=== PATIENT | female | born 1985 | race American Indian/Alaskan Native ===

== ENCOUNTER 2017-02-15 20:38 | Emergency (ER) | payer SELFPAY ==
--- NOTE | 2017-02-16 02:39 | Emergency Department Report ---
HPI - General Chief Complaint: Fever Time Seen by Provider: 02/16/17 02:06 - HPI HPI: Patient is a 31-year-old female presents to ED complaining of fever, body aches , cough 1 day. Patient states symptoms began at 9 AM yesterday. Patient states she dry nonproductive cough. Patient states she sees generalized body aches Along with a fever. Patient states she has not taken medication. Patient denies nausea/vomiting/chest pain/shortness of breath abdominal pain/ vaginal discharge. ED Past Medical Hx - Past Medical History Previous Medical History?: No - Surgical History Past Surgical History?: No - Social History Smoking Status: Never Smoker Substance Use Type: None - Medications Home Medications: Home Medications Medication Instructions Recorded Confirmed Last Taken Type Penicillin Vk [Veetids TAB] 500 mg PO QID #28 tablet 09/29/15 Unknown Rx Acetaminophen/Codeine 1 tab PO Q6H PRN #15 tab 08/10/16 Unknown Rx [Acetaminophen-Codeine #3 TAB] Penicillin Vk [Veetids TAB] 250 mg PO QID #28 tablet 08/10/16 Unknown Rx Ibuprofen [Motrin] 800 mg PO Q8HR PRN #30 tablet 02/16/17 Unknown Rx Sulfamethoxazole/Trimethoprim 1 each PO BID #14 tablet 02/16/17 Unknown Rx [Bactrim DS TAB] ED Review of Systems ROS: Stated complaint: HAMILTON/DIZZINESS Other details as noted in HPI Comment: All other systems reviewed and negative Constitutional: chills, fever, malaise Respiratory: cough Gastrointestinal: denies: nausea, vomiting Genitourinary: denies: urgency, dysuria, discharge Skin: denies: rash, lesions Physical Exam - Physical Exam Vital Signs: Vital Signs 02/15/17 21:30 Temperature 99 F Pulse Rate 104 H Respiratory 18 Rate Blood Pressure 117/80 O2 Sat by Pulse 99 Oximetry Physical Exam: GENERAL: Alert and oriented x3, no apparent distress, Normal Gait, atraumatic. HEAD: Head is normocephalic and a-traumatic. EYES: Extra ocular muscles are intact. Pupils are equal, round, and reactive to light and accommodation. EARS: symetrical, atraumatic, non tender, ear canal clear and moderate cerumen, tympanic membrance non inflamed. gross auditory nml bilaterally. NOSE: Nose symetrical, Nontender,Nares appeared normal. MOUTH:Mouth is well hydrated and without lesions. Tonsils nonerythematous or swollen, Uvula midline, Tongue not elevated. Mucous membranes are moist. Posterior pharynx clear, no exudate or lesions. Patent airways. NECK: Supple. Non edematous, No carotid bruits. No lymphadenopathy or thyromegaly. LUNGS: Symetrical with respiration, No wheezing, no rales or crackles, CTAB. HEART: S1, S2 present, regular rate and rhythm without murmur, no rubs, no gallops. ABDOMEN: No organomegaly was noted,Positive bowel sounds, soft, and non- distended. . Nontender to palpation on all Quadrants, NO CVA tenderness.. EXTREMITIES/MUSCULOSKELETAL: No cyanosis, clubbing, rash, lesions or edema. Full ROM bilaterally. UE/LE Pulses 2+ bilaterally. LE and UE 5+ strength bilaterally NEUROLOGIC: No focal Deficit, Cranial nerves II through XII are grossly intact. No loss of sensation, . PSYCHIATRIC: Mood is congruent with affect, denies suicidal or homicidal ideations. SKIN: Warm and dry, No lesions, No ulceration or induration present. ED Course Vital Signs 02/15/17 21:30 Temperature 99 F Pulse Rate 104 H Respiratory 18 Rate Blood Pressure 117/80 O2 Sat by Pulse 99 Oximetry ED Medical Decision Making - Medical Decision Making 31-year-old female presents with urinary tract infection ED course: Patient received Robitussin, 800 mg of Motrin. Urinalysis and UPT ordered. Urine test negative. Urinalysis suggests UTI Discussed the patient flulike symptoms. Discussed findings with patient. Discussed [id number] symptomatic relief. This caused increase hydration and vitamin C daily intake. Skull some medication of antibiotic. Discussed to take antibiotic as prescribed. Discussed Motrin as needed for pain. Critical care attestation.: If time is entered above; I have spent that time in minutes in the direct care of this critically ill patient, excluding procedure time. ED Disposition Clinical Impression: Flu-like symptoms UTI (urinary tract infection) Qualifiers: Urinary tract infection type: acute cystitis Hematuria presence: with hematuria Qualified Code(s): N30.01 - Acute cystitis with hematuria Disposition: DISCHARGED TO HOME OR SELFCARE Is pt being admited?: No Does the pt Need Aspirin: No Condition: Stable Instructions: Urinary Tract Infection in Women (ED) Prescriptions: Ibuprofen [Motrin] 800 mg PO Q8HR PRN #30 tablet PRN Reason: Pain Sulfamethoxazole/Trimethoprim [Bactrim DS TAB] 1 each PO BID #14 tablet Referrals: GORDON MAYS MD [Staff Physician] - 3-5 Days ROSETTA CANO MD [Referring] - 3-5 Days YASIR MOREIRA MD [Referring] - 3-5 Days Forms: Work/School Release Form(ED) Time of Disposition: 03:33
[2017-02-16 02:49] LABS: Bacteria,Urine 1+ /HPF (Negative); Bilirubin,Urine NEG (Negative); Blood,Urine NEG (Negative); Ketones,Urine NEG (Negative); Leukocyte Esterase,Urine NEG (Negative); Mucus,Urine 2+ /HPF; Nitrite,Urine NEG (Negative); Protein,Urine <15 mg/dL mg/dL (Negative)
[2017-02-16] MEDS ORDERED: ROBITUSSIN PO ONE (03:36)
[2017-02-16] MEDS ORDERED: MOTRIN PO ONE (03:36)
[2017-02-16 04:09] VITALS: BP 121/78
== END 2017-02-16 04:08 | disposition home or self-care (01) ==
LOC: ED 20:38
DX: N30.01 Acute cystitis with hematuria (principal)
CPT/HCPCS: 81001; 81025; 99283

== ENCOUNTER 2019-12-11 14:29 | Emergency (ER) | payer MEDICAID ==
[2019-12-11] MEDS ORDERED: ACETAMINOPHEN 325 MG TAB PO ONE (17:48)
--- NOTE | 2019-12-11 17:49 | Emergency Department Report ---
Blank Doc - Documentation Documentation: 34-year-old female that presents with URI and fever. Patient if 5 weeks pregn ant. This initial assessment/diagnostic orders/clinical plan/treatment(s) is/are subject to change based on patient's health status, clinical progression and re- assessment by fellow clinical providers in the ED. Further treatment and workup at subsequent clinical providers discretion. Patient/guardians urged not to elope from the ED as their condition may be serious if not clinically assessed a nd managed. Initial orders include: 1- Patient sent to [facility] for further evaluation and treatment 2- Tylenol-RN to repeat vitals
--- NOTE | 2019-12-11 21:42 | Emergency Department Report ---
Minor Respiratory - HPI Chief Complaint: Upper Respiratory Infection Stated Complaint: FLU SYM Time Seen by Provider: 12/11/19 17:47 Duration: 2 Days Minor Respiratory: Yes Able to Tolerate Fluids, Yes Cough, Yes Fever, No Rhinorrhea, No Sore Throat, No Ear Pain, No Sick Contacts, No Hemoptysis, No Chest Pain, No Shortness of Breath Other History: 34-year-old -British female presents to the emergency room for flulike symptoms. Patient presents a cough bodyaches and headache 2 days. Patient reports she is 5 weeks and 4 days 6 para 5. Patient reports she is in care's. Patient's taken nothing for symptoms Tylenol was given in triage. Patient states has chest pains or cough. ED Review of Systems ROS: Stated complaint: FLU SYM Other details as noted in HPI ED Past Medical Hx - Past Medical History Previous Medical History?: Yes Additional medical history: anemia - Surgical History Past Surgical History?: No - Social History Smoking Status: Never Smoker Substance Use Type: None - Medications Home Medications: Home Medications Medication Instructions Recorded Confirmed Last Taken Type Penicillin Vk [Veetids TAB] 500 mg PO QID #28 tablet 09/29/15 Unknown Rx Acetaminophen/Codeine [Tylenol 1 tab PO Q6H PRN #15 tab 08/10/16 Unknown Rx /Codeine # 3 tab] Penicillin Vk [Veetids TAB] 250 mg PO QID #28 tablet 08/10/16 Unknown Rx Ibuprofen [Motrin] 800 mg PO Q8HR PRN #30 tablet 02/16/17 Unknown Rx Sulfamethoxazole/Trimethoprim 1 each PO BID #14 tablet 02/16/17 Unknown Rx [Bactrim DS TAB] Oseltamivir [Tamiflu] 75 mg PO BID #10 cap 12/11/19 Unknown Rx Minor Respiratory Exam - Exam General: Vital signs noted. No distress. Alert and acting appropriately. Neurologic: Alert and oriented, no deficits. Musculoskeletal: Unremarkable. ED Course Vital Signs 12/11/19 12/11/19 16:54 17:50 Temperature 99.7 F H Pulse Rate 108 H Respiratory 20 18 Rate Blood Pressure 119/73 O2 Sat by Pulse 99 Oximetry Critical care attestation.: If time is entered above; I have spent that time in minutes in the direct care of this critically ill patient, excluding procedure time. ED Disposition Clinical Impression: Influenza A Disposition: DC-01 TO HOME OR SELFCARE Is pt being admited?: No Does the pt Need Aspirin: No Condition: Stable Instructions: Influenza (ED) Additional Instructions: You tested positive for influenza A. Increase her fluid intake of age for diet as tolerated complete antiviral medication. Take acetaminophen/Tylenol every 4- 6 hours as needed for fever and body aches. Follow-up which OB doctor Prescriptions: Oseltamivir [Tamiflu] 75 mg PO BID #10 cap Referrals: PRIMARY CARE, [Primary Care Provider] - 3-5 Days Forms: Work/School Release Form(ED), Accompanied Note
[2019-12-11 21:47] VITALS: BP 106/68
== END 2019-12-11 23:00 | disposition home or self-care (01) ==
LOC: ED 14:29
DX: J10.1 Influenza due to other identified influenza virus with other respiratory manifestations (principal); D64.9 Anemia, unspecified; Z88.5 Allergy status to narcotic agent; Z79.899 Other long term (current) drug therapy
CPT/HCPCS: 87400

== ENCOUNTER 2020-04-05 10:18 | Emergency (ER) | payer MEDICAID ==
[2020-04-05 10:30] VITALS: BP 108/61
--- NOTE | 2020-04-05 12:20 | Emergency Department Report ---
ED General Adult HPI - General Chief complaint: Dizziness Stated complaint: DIZZY/PAIN Time Seen by Provider: 04/05/20 11:47 Source: patient Mode of arrival: Ambulatory Limitations: No Limitations - History of Present Illness Initial comments: Patient is a 34-year-old female who presents emergency room with complaints of one episode of bright red blood per rectum that occurred yesterday. She states that she sat down on the toilet to have a bowel movement and noticed bright red blood present around the toilet. She states that she has experiencing some rectal pain. Patient states that she is on the end of her menstrual cycle. She states that she also had nausea and 2 episodes of vomiting. She has abdominal cramping. She denies any diarrhea, fever, urinary symptoms, melena, hematemesis. Patient states that she has had a history of hemorrhoids in the past. She also has a history of anemia but is not on any medications. She denies any allergies to medications. - Related Data Previous Rx's Medication Instructions Recorded Last Taken Type Penicillin Vk [Veetids TAB] 500 mg PO QID #28 tablet 09/29/15 Unknown Rx Acetaminophen/Codeine [Tylenol 1 tab PO Q6H PRN #15 tab 08/10/16 Unknown Rx /Codeine # 3 tab] Penicillin Vk [Veetids TAB] 250 mg PO QID #28 tablet 08/10/16 Unknown Rx Ibuprofen [Motrin] 800 mg PO Q8HR PRN #30 tablet 02/16/17 Unknown Rx Sulfamethoxazole/Trimethoprim 1 each PO BID #14 tablet 02/16/17 Unknown Rx [Bactrim DS TAB] Oseltamivir [Tamiflu] 75 mg PO BID #10 cap 12/11/19 Unknown Rx Docusate Sodium [Colace] 100 mg PO BID PRN #20 capsule 04/05/20 Unknown Rx Hydrocortisone [Anusol-Hc 2.5% TOP 1 applicatio RC BID #1 cream..g. 04/05/20 Unknown Rx CREAM] Ondansetron [Zofran Odt] 4 mg PO Q8HR PRN #12 tab.rapdis 04/05/20 Unknown Rx Pramoxine HCl [Proctofoam] 1 applic TP BID #1 foam 04/05/20 Unknown Rx Allergies Allergy/AdvReac Type Severity Reaction Status Date / Time oxycodone HCl [From Percocet] Allergy Itching Verified 04/05/20 10:28 ED Review of Systems ROS: Stated complaint: DIZZY/PAIN Other details as noted in HPI Comment: All other systems reviewed and negative ED Past Medical Hx - Past Medical History Previous Medical History?: Yes Additional medical history: anemia, hemorrhoid - Surgical History Past Surgical History?: No - Social History Smoking Status: Never Smoker Substance Use Type: None - Medications Home Medications: Home Medications Medication Instructions Recorded Confirmed Last Taken Type Penicillin Vk [Veetids TAB] 500 mg PO QID #28 tablet 09/29/15 Unknown Rx Acetaminophen/Codeine [Tylenol 1 tab PO Q6H PRN #15 tab 08/10/16 Unknown Rx /Codeine # 3 tab] Penicillin Vk [Veetids TAB] 250 mg PO QID #28 tablet 08/10/16 Unknown Rx Ibuprofen [Motrin] 800 mg PO Q8HR PRN #30 tablet 02/16/17 Unknown Rx Sulfamethoxazole/Trimethoprim 1 each PO BID #14 tablet 02/16/17 Unknown Rx [Bactrim DS TAB] Oseltamivir [Tamiflu] 75 mg PO BID #10 cap 12/11/19 Unknown Rx Docusate Sodium [Colace] 100 mg PO BID PRN #20 capsule 04/05/20 Unknown Rx Hydrocortisone [Anusol-Hc 2.5% TOP 1 applicatio RC BID #1 cream..g. 04/05/20 Unknown Rx CREAM] Ondansetron [Zofran Odt] 4 mg PO Q8HR PRN #12 tab.rapdis 04/05/20 Unknown Rx Pramoxine HCl [Proctofoam] 1 applic TP BID #1 foam 04/05/20 Unknown Rx ED Physical Exam - General Limitations: No Limitations General appearance: alert, in no apparent distress - Head Head exam: Present: atraumatic, normocephalic - Eye Eye exam: Present: normal appearance - ENT ENT exam: Present: mucous membranes moist - Respiratory Respiratory exam: Present: normal lung sounds bilaterally. Absent: respiratory distress, wheezes, rales, rhonchi, stridor, chest wall tenderness, accessory muscle use, decreased breath sounds, prolonged expiratory - Cardiovascular Cardiovascular Exam: Present: regular rate, normal rhythm, normal heart sounds. Absent: systolic murmur, diastolic murmur, rubs, gallop - GI/Abdominal GI/Abdominal exam: Present: soft, normal bowel sounds. Absent: distended, tenderness, guarding, rebound, rigid - Rectal Rectal exam: Present: normal rectal tone, hemorrhoids, other (business objects analyst: KAMRAN hutson, on exam: rectal vault is empty, there is no visualized blood, there are three 1 cm non thrombosed external hemorrhoids present, no palpable internal hemorrhoids, no palpable fluctuance). Absent: mass - Neurological Exam Neurological exam: Present: alert, oriented X3 - Psychiatric Psychiatric exam: Present: normal affect, normal mood - Skin Skin exam: Present: warm, dry, intact ED Course Vital Signs 04/05/20 10:29 Temperature 98.1 F Pulse Rate 61 Respiratory 17 Rate Blood Pressure 108/61 O2 Sat by Pulse 100 Oximetry ED Medical Decision Making - Lab Data Result diagrams: 04/05/20 12:10 04/05/20 12:10 Lab Results 04/05/20 04/05/20 04/05/20 Range/Units 12:10 12:10 12:10 WBC 3.4 L (4.5-11.0) K/mm3 RBC 4.22 (3.65-5.03) M/mm3 Hgb 11.5 (10.1-14.3) gm/dl Hct 34.8 (30.3-42.9) % MCV 83 (79-97) fl MCH 27 L (28-32) pg MCHC 33 (30-34) % RDW 18.7 H (13.2-15.2) % Plt Count 364 (140-440) K/mm3 Lymph % (Auto) 48.9 H (13.4-35.0) % Warrick % (Auto) 8.4 H (0.0-7.3) % Eos % (Auto) 2.0 (0.0-4.3) % Baso % (Auto) 0.6 (0.0-1.8) % Lymph # 1.6 (1.2-5.4) K/mm3 Warrick # 0.3 (0.0-0.8) K/mm3 Eos # 0.1 (0.0-0.4) K/mm3 Baso # 0.0 (0.0-0.1) K/mm3 Seg Neutrophils % 40.1 (40.0-70.0) % Seg Neutrophils # 1.4 L (1.8-7.7) K/mm3 Sodium 138 (137-145) mmol/L Potassium 4.4 (3.6-5.0) mmol/L Chloride 103.6 (98-107) mmol/L Carbon Dioxide 24 (22-30) mmol/L Anion Gap 15 mmol/L BUN 10 (7-17) mg/dL Creatinine 0.7 (0.7-1.2) mg/dL Estimated GFR > 60 ml/min BUN/Creatinine Ratio 14 % Glucose 106 H (65-100) mg/dL Calcium 9.2 (8.4-10.2) mg/dL Total Bilirubin 0.30 (0.1-1.2) mg/dL AST 18 (5-40) units/L ALT 12 (7-56) units/L Alkaline Phosphatase 94 (35-129) units/L Total Protein 7.4 (6.3-8.2) g/dL Albumin 4.3 (3.9-5) g/dL Albumin/Globulin Ratio 1.4 % Lipase 31 (13-60) units/L HCG, Qual Negative (Negative) Urine Color (Yellow) Urine Turbidity (Clear) Urine pH (5.0-7.0) Ur Specific [place] (1.003-1.030) Urine Protein (Negative) mg/dL Urine Glucose (UA) (Negative) mg/dL Urine Ketones (Negative) mg/dL Urine Blood (Negative) Urine Nitrite (Negative) Urine Bilirubin (Negative) Urine Urobilinogen (<2.0) mg/dL Ur Leukocyte Esterase (Negative) Urine WBC (Auto) (0.0-6.0) /HPF Urine RBC (Auto) (0.0-6.0) /HPF U Epithel Cells (Auto) (0-13.0) /HPF Urine Bacteria (Auto) (Negative) /HPF 04/05/20 Range/Units Unknown WBC (4.5-11.0) K/mm3 RBC (3.65-5.03) M/mm3 Hgb (10.1-14.3) gm/dl Hct (30.3-42.9) % MCV (79-97) fl MCH (28-32) pg MCHC (30-34) % RDW (13.2-15.2) % Plt Count (140-440) K/mm3 Lymph % (Auto) (13.4-35.0) % Warrick % (Auto) (0.0-7.3) % Eos % (Auto) (0.0-4.3) % Baso % (Auto) (0.0-1.8) % Lymph # (1.2-5.4) K/mm3 Warrick # (0.0-0.8) K/mm3 Eos # (0.0-0.4) K/mm3 Baso # (0.0-0.1) K/mm3 Seg Neutrophils % (40.0-70.0) % Seg Neutrophils # (1.8-7.7) K/mm3 Sodium (137-145) mmol/L Potassium (3.6-5.0) mmol/L Chloride (98-107) mmol/L Carbon Dioxide (22-30) mmol/L Anion Gap mmol/L BUN (7-17) mg/dL Creatinine (0.7-1.2) mg/dL Estimated GFR ml/min BUN/Creatinine Ratio % Glucose (65-100) mg/dL Calcium (8.4-10.2) mg/dL Total Bilirubin (0.1-1.2) mg/dL AST (5-40) units/L ALT (7-56) units/L Alkaline Phosphatase (35-129) units/L Total Protein (6.3-8.2) g/dL Albumin (3.9-5) g/dL Albumin/Globulin Ratio % Lipase (13-60) units/L HCG, Qual (Negative) Urine Color Yellow (Yellow) Urine Turbidity Clear (Clear) Urine pH 5.0 (5.0-7.0) Ur Specific [place] 1.018 (1.003-1.030) Urine Protein <15 mg/dl (Negative) mg/dL Urine Glucose (UA) Neg (Negative) mg/dL Urine Ketones Neg (Negative) mg/dL Urine Blood Mod (Negative) Urine Nitrite Neg (Negative) Urine Bilirubin Neg (Negative) Urine Urobilinogen < 2.0 (<2.0) mg/dL Ur Leukocyte Esterase Neg (Negative) Urine WBC (Auto) < 1.0 (0.0-6.0) /HPF Urine RBC (Auto) < 1.0 (0.0-6.0) /HPF U Epithel Cells (Auto) 4.0 (0-13.0) /HPF Urine Bacteria (Auto) 1+ (Negative) /HPF - Medical Decision Making Patient is a 34-year-old female who presents emergency room with complaints of one episode of bright red blood per rectum that occurred yesterday. She states that she sat down on the toilet to have a bowel movement and noticed bright red blood present around the toilet. She states that she has experiencing some rectal pain. Patient states that she is on the end of her menstrual cycle. She states that she also had nausea and 2 episodes of vomiting. She has abdominal cramping. She denies any diarrhea, fever, urinary symptoms, melena, hematemesis. Patient states that she has had a history of hemorrhoids in the past. She also has a history of anemia but is not on any medications. She denies any allergies to medications. Vitals are normal. No abdominal tenderness on exam. rectal exam: business objects analyst: KAMRAN hutson, on exam: rectal vault is empty, there is no visualized blood, there are three 1 cm non thrombose d external hemorrhoids present, no palpable internal hemorrhoids, no palpable fluctuance. Labs are stable. H&H is normal. UA without signs of UTI. Patient given ODT Zofran while in the emergency department had no episodes of vomiting and was able to tolerate p.o. intake without difficulty. Discussed findings with patient. Patient given prescription for Colace, Anusol, Proctofoam, zofran. advised pt Please use medication as prescribed. Increase your water intake. Increase your fiber intake. Follow-up with a GI doctor. Follow-up with a primary care doctor. Return to the emergency room for any new or worsening symptoms. Critical care attestation.: If time is entered above; I have spent that time in minutes in the direct care of this critically ill patient, excluding procedure time. ED Disposition Clinical Impression: External hemorrhoids Nausea & vomiting Qualifiers: Vomiting type: unspecified Vomiting Intractability: non-intractable Qualified Code(s): R11.2 - Nausea with vomiting, unspecified Disposition: DC-01 TO HOME OR SELFCARE Is pt being admited?: No Does the pt Need Aspirin: No Condition: Stable Instructions: Hemorrhoids (ED), High Fiber Diet (ED), Acute Nausea and Vomiting (ED) Additional Instructions: Please use medication as prescribed. Increase your water intake. Increase your fiber intake. Follow-up with a GI doctor. Follow-up with a primary care doctor. Return to the emergency room for any new or worsening symptoms. Prescriptions: Hydrocortisone [Anusol-Hc 2.5% TOP CREAM] 1 applicatio RC BID #1 cream..g. Docusate Sodium [Colace] 100 mg PO BID PRN #20 capsule PRN Reason: Constipation Pramoxine HCl [Proctofoam] 1 applic TP BID #1 foam Ondansetron [Zofran Odt] 4 mg PO Q8HR PRN #12 tab.rapdis PRN Reason: Nausea And Vomiting Referrals: NORMA CHILDS NP [Primary Care Provider] - 2-3 Days [facility] [Provider Group] - 2-3 Days Time of Disposition: 13:16 Print Language: PASHTO
[2020-04-05 12:23] LABS: Basophils % (Auto) 0.6 % (0.0-1.8); Eosinophils # (Auto) 0.1 K/mm3 (0.0-0.4); Hematocrit 34.8 % (30.3-42.9); Hemoglobin 11.5 gm/dl (10.1-14.3); Lymphocytes # (Auto) 1.6 K/mm3 (1.2-5.4); Lymphocytes % (Auto) 48.9 % (13.4-35.0); Mean Corpuscular HGB Conc 33 % (30-34); Mean Corpuscular Volume 83 fl (79-97); Monocytes # (Auto) 0.3 K/mm3 (0.0-0.8); Monocytes % (Auto) 8.4 % (0.0-7.3); Platelet Count 364 K/mm3 (140-440); Red Blood Count 4.22 M/mm3 (3.65-5.03); Red Cell Distribution Width 18.7 % (13.2-15.2)
[2020-04-05] MEDS ORDERED: ONDANSETRON 4 MG ODT TAB PO ONE (12:23)
[2020-04-05 12:29] LABS: Bacteria,Urine 1+ /HPF (Negative); Bilirubin,Urine NEG (Negative); Blood,Urine MOD (Negative); Color,Urine Yellow (Yellow); Protein,Urine <15 mg/dL mg/dL (Negative); RBC,Urine < 1.0 /HPF (0.0-6.0); Urobilinogen,Urine < 2.0 mg/dL (<2.0); WBC,Urine < 1.0 /HPF (0.0-6.0)
[2020-04-05 12:52] LABS: Alanine Aminotransferase 12 units/L (7-56); Albumin 4.3 g/dL (3.9-5); BUN/Creatinine Ratio 14; Blood Urea Nitrogen 10 mg/dL (7-17); Calcium 9.2 mg/dL (8.4-10.2); Hemolysis Index 2
== END 2020-04-05 13:37 | disposition home or self-care (01) ==
LOC: ED 10:18
DX: K64.4 Residual hemorrhoidal skin tags (principal); R11.2 Nausea with vomiting, unspecified; Z79.899 Other long term (current) drug therapy; Z88.8 Allergy status to other drugs, medicaments and biological substances
CPT/HCPCS: 36415; 80053; 81001; 83690; 84703; 85025; 99283; Q0162